=== PATIENT | female | born 1955 | race Caucasian/White ===

== ENCOUNTER 2017-08-10 08:00 | Outpatient (CLI) | payer OTHER | END 2017-08-10 08:01 | disposition home or self-care (01) | LOC: BICMAMMO 08:00 | PROVIDERS: ATTEND Obstetrics & Gynecology | DX: Z12.31 Encounter for screening mammogram for malignant neoplasm of breast (principal) | CPT/HCPCS: 77063 ==

== ENCOUNTER 2018-02-04 14:30 | Outpatient (CLI) | payer OTHER ==
--- NOTE | 2018-02-04 16:21 | MRI ---
MRI OF RIGHT WRIST PERFORMED WITHOUT CONTRAST ENHANCEMENT: 02/04/18 HISTORY: Ulnar sided wrist pain. History of old injury to the wrist. There are arthritic changes of the wrist. These changes are mainly related to the triscaphe and first carpometacarpal joint spaces. The carpal tunnel region appears unremarkable and extensor tendons are also unremarkable in appearance. The scaphoid shows some cystic changes and some smaller cysts above the carpal bones are felt to be o n the basis of some arthritic change. There is some for ulnar abutment. There is subchondral cystic c hange and marrow edema changes of the proximal and ulnar side of the lunate bone and some edema munguia es on the dorsal side of the ulna. There is a very thinned appearance to the triangular fibrocartilag e with central perforation. IMPRESSION: 1. There is evidence for ulnar impingement. There is marrow edema change of the ulnar side of th e lunate and very thinned atretic irregular appearance to the central portion of the triangular fibro cartilage with a central perforation. 2. Arthritic changes of the wrist. Scapholunate and lunotriquetral ligaments appear intact. POS: [facility]
== END 2018-02-04 14:31 | disposition home or self-care (01) ==
LOC: SCSMRI 14:30
PROVIDERS: ATTEND Orthopaedic Surgery Hand Surgery
DX: S63.591A Other specified sprain of right wrist, initial encounter (principal); M19.031 Primary osteoarthritis, right wrist; M25.831 Other specified joint disorders, right wrist

== ENCOUNTER 2018-03-23 12:22 | Outpatient (CLI) | payer OTHER ==
[2018-03-23 13:53] LABS: #Basophils 0.1 thou/uL (0.0-0.2); #Eosinphils 0.2 thou/uL (0.0-0.7); #Lymphocytes 2.8 thou/uL (1.20-3.40); #Monocytes 0.6 thou/uL (0.11-0.59); #Neutrophils 3.1 thou/uL (1.40-6.50); %Basophils 1.1 % (0.0-1.0); %Eosinophils 2.6 % (0.0-10.0); %Lymphocytes 41.6 % (21.0-51.0); %Monocytes 9.3 % (0.0-10.0); %Neutrophils 45.5 % (42.0-75.0); Mean Corpuscular HGB CONC 33.6 g/dL (32.0-36.0); Mean Corpuscular Hemoglobin 30.9 pg (27.0-31.0); Mean Corpuscular Volume 92.1 fL (78.0-98.0); Platelet Count 299 thou/uL (130-400); RBC Distribution Width 11.7 % (11.5-14.5); Red Blood Cell (RBC) Count 4.53 mill/uL (4.20-5.40); White Blood Cell (WBC) Count 6.8 thou/uL (4.8-10.8)
[2018-03-23 14:10] LABS: Anion Gap 9 mmol/L (10-20); BUN (Urea Nitrogen) 9 mg/dL (9.8-20.1); Calc. Creatinine Clearance 0 mL/min (70-130); Calcium 9.6 mg/dL (7.8-10.44); Carbon Dioxide 30 mmol/L (23-31); Chloride 106 mmol/L (98-107); Estimated GFR-MDRD 61; Glucose 88 mg/dL (80-115); Potassium 3.9 mmol/L (3.5-5.1); Sodium 141 mmol/L (136-145)
== END 2018-03-23 12:23 | disposition home or self-care (01) ==
LOC: LABBT 12:22
PROVIDERS: ATTEND Orthopaedic Surgery Hand Surgery
DX: Z01.818 Encounter for other preprocedural examination (principal); S63.591A Other specified sprain of right wrist, initial encounter; M25.839 Other specified joint disorders, unspecified wrist
CPT/HCPCS: 80048; 85025; 93005; 93010

== ENCOUNTER 2018-03-25 06:34 | Day surgery (SDC) | payer OTHER ==
[2018-03-23 12:27] VITALS: BMI 24.3
[2018-03-25] MEDS ORDERED: Midazolam HCl 2 mg/2 ml Vial ONE (08:09)
[2018-03-25] MEDS ORDERED: Fentanyl 100 MCG/2 ML VIAL ONE ×2 (08:09→08:56)
[2018-03-25 08:12] LABS: Bilirubin Negative (Negative); Blood, Urine Negative (Negative); Clarity CLOUDY (Clear); Glucose, Urine (Dipstick) Negative (Negative); Leukocyte Large (Negative); Nitrite Positive (Negative); Protein, Urine (Dipstick) Negative (Neg-Trace); Specific Gravity, Urine 1.017 (1.002-1.036); Urobilinogen 0.2 mg/dL (0.2-1.0); pH, Urine 6.5 (5.0-9.0)
[2018-03-25 08:13] LABS: Bacteria/HPF 4+ HPF (None Seen); Hyaline Casts/LPF 4-6 HYALINE CAST LPF (0-3 Hyaline); Pathc Cast-AUWi Flag 0.29 (0-2.49); Squamous Epithelial 0-3 HPF (0-3)
[2018-03-25] MEDS ORDERED: traMADol HCl 50 MG TAB PO PRN ×2 (08:29)
[2018-03-25] MEDS ORDERED: Ondansetron HCl/PF 4 MG/2 ML Vial IVP PRN (08:29)
[2018-03-25] MEDS ORDERED: Zolpidem Tartrate 5 MG TAB PO PRN (08:29)
[2018-03-25] MEDS ORDERED: Promethazine HCl 25 MG/ML VIAL IM PRN (08:29)
[2018-03-25] MEDS ORDERED: HYDROcodone/Acetaminophen 10/325 mg Tablet PO PRN ×2 (08:29)
[2018-03-25] MEDS ORDERED: Ropivacaine HCl/PF 1,100 MG in Sodium Chloride 0.9% 440 ML NERVE BLCK SCH (08:29)
[2018-03-25] MEDS ORDERED: Fentanyl 100 MCG/2 ML VIAL IV PRN (08:30)
[2018-03-25] MEDS ORDERED: Bupivacaine PF 0.5% 30 ML VIAL ONE (08:44)
[2018-03-25] MEDS ORDERED: Bacitracin Zinc Ointment 30 gm TUBE ONE (08:44)
[2018-03-25] MEDS ORDERED: Sodium Chloride 0.9% 0 ML ONE (08:44)
[2018-03-25] MEDS ORDERED: HYDROmorphone 0.5 MG/0.5 ML SYRINGE ONE (08:56)
[2018-03-25] MEDS ORDERED: CEFAZOLIN/Water 2 GM/20 ML SYRINGE ONE (09:05)
--- NOTE | 2018-03-25 09:14 | RAD ---
CHEST PA AND LATERAL: HISTORY: A 62-year-old female for preoperative evaluation. FINDINGS: Heart size is within normal limits. The lungs are clear of acute process. There are some mild incre ased linear and interstitial markings bilaterally. Minimal biapical pleural thickening. No confluen t pneumonia, overt edema, or pleural effusion. IMPRESSION: Evidence for minimal chronic lung change. No acute intrathoracic disease. Atherosclerosis of the ao rta. POS: [facility]
[2018-03-25] MEDS ORDERED: EPINEPHrine 1 MG/ML AMP ONE (09:29)
[2018-03-25] MEDS ORDERED: Ketorolac Tromethamine 30 MG/ML VIAL ONE (12:46)
--- NOTE | 2018-03-25 12:50 | OP ---
DATE OF PROCEDURE: 03/25/2018 SURGEON: Cuhck Santoyo M.D. PREOPERATIVE DIAGNOSES: 1. Right triangular fibrocartilage tear. 2. Right ulnar carpal impingement. POSTOPERATIVE DIAGNOSES: 1. Right triangular fibrocartilage tear. 2. Right ulnar carpal impingement. 3. Findings of an almost 1 cm long 1-2 mm wide radial and central tear of the triangular fibrocartil age synovitis in the ulnar aspect of the radiocarpal joint and in the ulnar carpal joint. PROCEDURES PERFORMED: 1. Arthroscopic synovectomy, right wrist. 2. Arthroscopic triangular fibrocartilage resections, right wrist. 3. Open radial shortening osteotomy, using Rayhack technique with a Rayhack placed. INDICATIONS: Pain unresolved with injection therapy, splinting time and a positive MRI for central t o radial TFCC tear with mild degenerative changes. ANESTHESIA: General LMA technique by Evaristo Jose CRNA. Anesthesia was also augmented by preoperati ve indwelling block. INJECTABLE: None. DESCRIPTION OF PROCEDURE: After successful anesthesia listed above, the limb was prepped and draped. It was placed in a standard wrist jacobs for arthroscopic without weight tract. We outlined the __ __ and the 3-4 portals and then established them under the appropriate amount of traction. We then v isualized synovitis as described above and performed arthroscopic synovectomy of the primary wrist jose int. There was no radial carpal ligamentous tear, no mid carpal ligamentous tear, no evidence of a l unate or triquetrum or interosseous ligament tear, but there was marked synovitis in the ulnar aspect of the radiocarpal joint and entire ulnocarpal joints so synovectomy performed with a 2.0 shaver. We then were able to visualize triangular fibrocartilage and moved back between the radius and ulna s upport as visualization, we were able to trim this 1 cm long by 1.5 mm wide tear to a stable circular rim, same length, almost twice as wide. The arthroscope was removed. Portals closed. The limb exsanguinated, tourniquet inflated to 250 mmH g pressure. Zigzag incision was made centered on the ulna and just on the junction of the lateral ed ge of the volar was a ridge of bone that plate could fit flat and placed it here. We then drilled, m easured and tapped until we had the screws securely through the plate. We then took 3rd and 4th scre w and made the screw that we used for final plate out for initial plate application 4 mm longer. Thi s allowed us to place on the cut guide, appropriate position and then when we had finished the osteot oswaldo pulled away from, placed the plate and the cutter guide back on we were able to easily coapt the edges with hand tightening. Then I placed a lag screw across the cord, coapted ends an osteotomy maintained anatomic position red uction, this was a 2.7 lag screw while 2 distal 3.5 screws were placed. We removed the reduction dev ice, placed 2 screws in this hole and then the patient left the operating room with tourniquet deflat ed. No evidence of anesthetic or operative complication after closing the fascia with a running 2-0 Vicryl, subcutaneous closed with 4-0 Monocryl and the skin reapproximated with 4-0 nylon mattress pat tern.
== END 2018-03-25 14:30 | disposition home or self-care (01) ==
LOC: SDC 06:34
PROVIDERS: ATTEND Orthopaedic Surgery Hand Surgery
PROC: 0RBN4ZZ Excision of Right Wrist Joint, Percutaneous Endoscopic Approach (ICD-10-PCS; principal; 2018-03-25)
PROC: 0PSH04Z Reposition Right Radius with Internal Fixation Device, Open Approach (ICD-10-PCS; principal; 2018-03-25)
PROC: 0MB54ZZ Excision of Right Wrist Bursa and Ligament, Percutaneous Endoscopic Approach (ICD-10-PCS; principal; 2018-03-25)
DX: M25.831 Other specified joint disorders, right wrist (principal); S63.591A Other specified sprain of right wrist, initial encounter; M65.88 Other synovitis and tenosynovitis, other site; Z79.899 Other long term (current) drug therapy
CPT/HCPCS: 71046; 76001; 81003; 81015; A4216; C1713; J0171; J1170; J1885; J2250; J3010; J3490; J7050; S0020

== ENCOUNTER 2018-08-08 14:36 | Outpatient (CLI) | payer OTHER ==
--- NOTE | 2018-08-08 17:17 | BD ---
DEXA BONE DENSITOMETRY: (Dual energy X-ray Absorptiometry) DATE: 08/08/2018 HISTORY: A 63-year-old postmenopausal white female, for followup of age-related osteoporosis screening examina tion. Height 68 in. Weight 165 lbs. Age of menopause 45 years. COMPARISON: Most recent previous: 07/14/2016 Baseline: 12/15/2007 FINDINGS: The bone mineral density (BMD) is given in grams per square centimeter (g/cm2): LUMBAR SPINE: BMD(g/cm2) T-score Z-score L1: 0.675 -2.9 -1.5 L2: 0.856 -1.6 0.0 L3: 0.819 -2.4 -0.8 L4: 0.789 -2.5 -0.8 Total: 0.789 -2.3 -0.8 Change in BMD compared to most recent previous DEXA: -1.4% Change in BMD compared to baseline DEXA: -0.9% HIP: Femoral neck: 0.654 -1.8 -0.4 Total: 0.830 -0.9 0.2 Change in BMD compared to most recent previous DEXA: +4.7% Change in BMD compared to baseline DEXA: +7.5% FRAX WHO Fracture Risk Assessment Tool: 10 Year Fracture Risk * Major osteoporotic fracture: 18% Hip fracture: 1.1% Reported Risk Factors: [place](), Neck BMD=0.65, BMI=25.1, and parental fracture. * Fracture probability is calculated for an untreated patient. Fracture probability may be lower if the patient has received treatment. IMPRESSION: 1) The mean bone mineral density of the lumbar spine is osteopenic. Fracture risk is increased. 2) The bone mineral density of the femoral neck is osteopenic. Fracture risk is increased. ELIANA Bean POS: [facility]
== END 2018-08-08 14:37 | disposition home or self-care (01) ==
LOC: BICMAMMO 14:36
PROVIDERS: ATTEND Obstetrics & Gynecology
DX: Z12.31 Encounter for screening mammogram for malignant neoplasm of breast (principal); Z13.820 Encounter for screening for osteoporosis; M85.89 Other specified disorders of bone density and structure, multiple sites; Z85.3 Personal history of malignant neoplasm of breast
CPT/HCPCS: 77063; 77067; 77080

== ENCOUNTER 2019-08-15 09:03 | Outpatient (CLI) | payer OTHER ==
--- NOTE | 2019-08-15 09:39 | MMO ---
Bilateral MAMMO Bilat Screen [facility]. CLINICAL HISTORY: Patient is 64 years old and is seen for screening. The patient has no family history of breast cancer. The patient has a history of left Excisional Biopsy in October, - Moderately defferentiated infiltrating dudtal carc and left Mastectomy in 11/2000 - moderately differnentiated infiltrating ductal car. VIEWS: The views performed were: right craniocaudal with tomosynthesis and right mediolateral oblique with tomosynthesis. FILMS COMPARED: The present examination has been compared to prior imaging studies performed at [facility] on 08/10/2017 and 08/08/2018, and at [facility] on 07/18/2015 and 07/14/2016. This study has been interpreted with the assistance of computer-aided detection. MAMMOGRAM FINDINGS: There are scattered fibroglandular densities. There are vascular calcifications seen in the right breast. There are no suspicious masses, suspicious calcifications, or new areas of architectural distortion. IMPRESSION: A ROUTINE FOLLOW-UP MAMMOGRAM IN 1 YEAR IS RECOMMENDED. THE RESULTS OF THIS EXAM WERE SENT TO THE PATIENT. ACR BI-RADS Category 2 - Benign finding MAMMOGRAPHY NOTE: 1. A negative mammogram report should not delay a biopsy if a dominant of clinically suspicious mass is present. 2. Approximately 10% to 15% of breast cancers are not detected by mammography. 3. Adenosis and dense breasts may obscure an underlying neoplasm. Reported by: QI MARTINEZ MD Electonically Signed: [id number]
== END 2019-08-15 09:04 | disposition home or self-care (01) ==
LOC: BICMAMMO 09:03
PROVIDERS: ATTEND Obstetrics & Gynecology
DX: Z12.31 Encounter for screening mammogram for malignant neoplasm of breast (principal); Z85.3 Personal history of malignant neoplasm of breast; Z90.12 Acquired absence of left breast and nipple
CPT/HCPCS: 77063; 77067

== ENCOUNTER 2020-08-16 08:53 | Outpatient (CLI) | payer OTHER ==
--- NOTE | 2020-08-16 11:03 | BD ---
DEXA BONE DENSITY STUDY: Date: 08/16/2020 COMPARISON: 08/08/2018. HISTORY: 65-year-old postmenopausal female for screening. FINDINGS: Lumbar Spine: BMD (g/cm2) L1 0.710 T-Score: -2.5 L2 0.838 T-Score: -1.7 L3 0.833 T-Score: -2.3 L4 0.804 T-Score: -2.3 L1-L4 0.798 T-Score: -2.3 Left Femoral Neck: 0.635 T-Score: -1.9 Total Femur: 0.778 T-Score: -1.3 IMPRESSION: Osteopenia. This patient has a 10 year WHO fracture risk for a major osteoporotic fracture of 19% and for a hip fracture of 1.5%. POS: [facility]
--- NOTE | 2020-08-16 11:26 | MMO ---
Bilateral MAMMO Bilat Screen [facility]. CLINICAL HISTORY: Patient is 65 years old and is seen for screening. The patient has no family history of breast cancer. The patient has a history of left Excisional Biopsy in October, - Moderately defferentiated infiltrating dudtal carc and left Mastectomy in 11/2000 - moderately differnentiated infiltrating ductal car. VIEWS: The views performed were: right craniocaudal with tomosynthesis and right mediolateral oblique with tomosynthesis. FILMS COMPARED: The present examination has been compared to prior imaging studies performed at [facility] on 08/10/2017, 08/08/2018 and 08/15/2019, and at [facility] on 07/14/2016. This study has been interpreted with the assistance of computer-aided detection. MAMMOGRAM FINDINGS: There are scattered fibroglandular densities. Benign calcifications are noted bilaterally. There are no suspicious masses, suspicious calcifications, or new areas of architectural distortion. IMPRESSION: THERE IS NO MAMMOGRAPHIC EVIDENCE OF MALIGNANCY. A ROUTINE FOLLOW-UP MAMMOGRAM IN 1 YEAR IS RECOMMENDED. THE RESULTS OF THIS EXAM WERE SENT TO THE PATIENT. ACR BI-RADS Category 2 - Benign finding MAMMOGRAPHY NOTE: 1. A negative mammogram report should not delay a biopsy if a dominant of clinically suspicious mass is present. 2. Approximately 10% to 15% of breast cancers are not detected by mammography. 3. Adenosis and dense breasts may obscure an underlying neoplasm. Reported by: TARIK WEISS MD Electonically Signed: [id number]
== END 2020-08-16 08:54 | disposition home or self-care (01) ==
LOC: BICMAMMO 08:53
PROVIDERS: ATTEND Physician Assistant
DX: Z12.31 Encounter for screening mammogram for malignant neoplasm of breast (principal); Z13.820 Encounter for screening for osteoporosis; M81.0 Age-related osteoporosis without current pathological fracture; M85.852 Other specified disorders of bone density and structure, left thigh; Z90.12 Acquired absence of left breast and nipple; Z85.3 Personal history of malignant neoplasm of breast
CPT/HCPCS: 77063; 77067; 77080

== ENCOUNTER 2021-08-21 08:58 | Outpatient (CLI) | payer MEDICARE | END 2021-08-21 08:59 | disposition home or self-care (01) | LOC: BICMAMMO 08:58 | PROVIDERS: ATTEND Nurse Practitioner | DX: Z12.31 Encounter for screening mammogram for malignant neoplasm of breast (principal); Z85.3 Personal history of malignant neoplasm of breast; Z90.12 Acquired absence of left breast and nipple | CPT/HCPCS: 77063; 77067 ==